=== PATIENT | female | born 1945 | race Caucasian/White ===

== ENCOUNTER 2020-07-20 10:30 | Emergency (ER) | payer MEDICARE, SELFPAY ==
[2020-07-20 10:37] VITALS: BP 117/88; PULSE 59; RESP 12; TEMP 36.1; O2SAT 98
--- NOTE | 2020-07-20 10:57 | ED.SKABFB ---
HPI - Skin/Abscess/Foreign Bdy General Chief complaint: Skin/Abscess/Foreign Body Stated complaint: bite/skin Time Seen by Provider: 07/20/20 10:47 Source: patient and RN notes reviewed Mode of arrival: ambulatory Limitations: no limitations History of Present Illness HPI narrative: Patient presents today complaining of an area to the right lower jaw that is, eating away at my face. States she sustained a wasp sting to this area 1 month ago, but had not been causing problems after a few days. States a few nurse friends noted some swelling to this area and told patient she should apply Prid Salve. She did, but states the area became worse. Denies pain or itching. She is now applying FOZIA for the last few days. MD complaint: insect bite/sting Related Data Home Medications Medication Instructions Recorded Confirmed simvastatin 20 mg PO DAILY 07/20/20 Allergies Allergy/AdvReac Type Severity Reaction Status Date / Time No Known Allergies Allergy Unknown Verified 07/20/20 10:38 Review of Systems Review of Systems: Narrative: CONSTITUTIONAL: Denies body aches, fever, chills, or sweats. EYES: Denies visual changes, redness, or discharge. ENT: Denies rhinorrhea, congestion, sore throat, or otalgia. CARDIOVASCULAR: Denies chest pain, palpitations, or edema. RESPIRATORY: Denies cough or dyspnea. GASTROINTESTINAL: Denies abdominal pain, nausea, vomiting, or diarrhea. GENITOURINARY: Denies dysuria or hematuria. SKIN: + Wound to right lower jaw MUSCULOSKELETAL: Denies back pain, joint pain, or myalgia. NEUROLOGIC: Denies headache, numbness, tingling, or weakness. PSYCH: Denies depression or anxiety. PMFSH Social History Social History (Reviewed 12/06/19 @ 10:22 by Racquel Del Rosario [facility]) Smoking status: Never smoker Second hand tobacco smoke exposure: No Alcohol intake: never Comments At time of signature, I have reviewed and agree with nursing past medical, surgical, social and family history unless otherwise noted. Please see nursing chart for further information. There is no relevant family history pertinent to the presenting complaint Exam Narrative: Exam Narrative: GENERAL: Well-appearing, well-nourished, and in no acute distress. HEAD: Normocephalic, atraumatic. EYES: EOMI. No redness or drainage. Conjunctivae normal. ENT: Mucous membranes pink and moist. NECK: Normal AROM. Supple. No lymphadenopathy. CHEST: No respiratory distress. EXTREMITIES: Normal range of motion. No edema. SKIN: Warm, dry, no rash. Capillary refill normal. Normal skin turgor. 1cm very superficial round scab to the right lower jaw line. There is no erythema, induration, fluctuance, drainage, pain with palpation, swelling, open wound, or any other sign of infection. No lymphadenopathy. Non tender. NEURO: No focal deficits. Alert and oriented x3. Gait steady. PSYCH: Normal affect. No signs of depression or anxiety. Course Vital Signs Vital signs: Vital Signs Temperature 96.9 F L 07/20/20 10:37 Pulse Rate 59 L 07/20/20 10:37 Respiratory Rate 12 07/20/20 10:37 Blood Pressure 117/88 07/20/20 10:37 Pulse Oximetry 98 07/20/20 10:37 Temperature 96.9 F L 07/20/20 10:37 Pulse Rate 59 L 07/20/20 10:37 Respiratory Rate 12 07/20/20 10:37 Blood Pressure 117/88 07/20/20 10:37 Pulse Oximetry 98 07/20/20 10:37 Reviewed. Pt has been instructed to follow up with her PCP regarding her elevated blood pressure today. MDM - Skin/Abscess/Foreign Bdy Differential Diagnosis Differential diagnosis: Likely abscess of skin or subcutaneous tissue, cellulitis, eczema, insect bites, impetigo and contact dermatitis Critical Care Time Critical Care Time Critical Care Time: No Discharge Plan Discharge Clinical Impression: Scab Patient Disposition: Home, Self-Care Condition: Stable Additional Instructions: Please use the mupirocin ointment as prescribed. Follow-up with your PCP at the end of
== END 2020-07-20 11:03 | disposition home or self-care (01) ==
PROVIDERS: Emergency Provider Nurse Practitioner; PCP Family Medicine
DX: R23.4 Changes in skin texture (principal)
CPT/HCPCS: 99213; G0463

== ENCOUNTER → 2020-10-15 11:56 | Outpatient (CLI) | payer MEDICARE, SELFPAY ==
--- NOTE | ~2020-10-15 | MM_ITS ---
EXAMINATION: MM screening zee BI w judi HISTORY: Screening TECHNIQUE: Craniocaudal and mediolateral oblique 3-D tomosynthesis images were obtained and synthetic 2-D images were generated. CAD analysis was submitted and interpreted. COMPARISON: Comparison to multiple prior studies sequentially, with oldest reviewed study dated 12/03. BREAST PARENCHYMAL COMPOSITION: There are scattered areas of fibroglandular density. FINDINGS: There is no evidence of suspicious mass, calcification, or architectural distortion to sugg est malignancy in either breast. There has been no suspicious interval change. IMPRESSION: 1. No mammographic evidence of malignancy. 2. Recommend routine screening mammography in one year. BI-RADS Category 1: Negative Reviewed, dictated and finalized at location D. E TABLE OPERATOR
== END ==
PROVIDERS: PCP Family Medicine; Visit Provider Family Medicine
DX: Z12.31 Encounter for screening mammogram for malignant neoplasm of breast (principal)
CPT/HCPCS: 77063; 77067

== ENCOUNTER 2022-09-28 14:51 | Outpatient (CLI) | payer MEDICARE, SELFPAY ==
--- NOTE | ~2022-09-28 | DEXA_ITS ---
Bone Density Report Name: EVELYNE CHAVEZ Age: 77 Sex: Female Ethnicity: White Date of : 1945 Indication: postmenopausal; screening for osteoporosis; Referring Provider: UNKNOWN, UNKNOWN Study: Bone densitometry was performed. Exam Date: September 28, 2022 Accession number: [id number] Bone Density: Region BMD T-score Z-score Classification AP Spine(L1-L4) 1.043 0.0 2.6 Normal Femoral Neck (Left) 0.789 -0.5 1.7 Normal Total Hip (Left) 0.918 -0.2 1.8 Normal Femoral Neck (Right) 0.810 -0.4 1.9 Normal Total Hip (Right) 0.903 -0.3 1.7 Normal Total Hip Mean 0.910 -0.3 1.8 Normal World Health Organization criteria for BMD impression classify patients as: Normal (T-score at or above -1.0), Osteopenia (T-score between -1.0 and -2.5), or Osteoporosis (T-score at or below -2.5). 10-year Fracture Risk: FRAX not reported because: All T-scores for Spine Total, Hip Total, Femoral Neck at or above -1.0 Clinical Information Provided by Patient: Patient maximum height was 64 Menopause Age: 48 Drinks caffeinated beverages Onset of menses at age 10 Number of children 2 Impression: The patient has normal bone mass. Discussion: BONE DENSITY IS ABOVE THE MINIMUM DESIRABLE LEVEL AT ALL SKELETAL SITES TESTED. This patient?s bone mineral density is above the minimum desirable level (T-score -1.0 or better) at all sites measured. The patient should follow a healthful lifestyle (good nutrition with adequate calcium and vitamin D, and appropriate weight-bearing exercise). Follow-Up: Consider repeating this study in 5 years or sooner if there is some new clinical indication. Reported by: PEPE on 09/28/2022 3:23:00 PM. Reviewed, dictated and finalized at location AJennifer [facility]
== END 2022-09-28 14:52 | disposition home or self-care (01) ==
PROVIDERS: PCP Family Medicine
DX: Z78.0 Asymptomatic menopausal state (principal)
CPT/HCPCS: 77080

== ENCOUNTER 2024-07-26 06:29 | Day surgery (SDC) | payer MEDICARE, SELFPAY ==
[2024-06-14 06:06] VITALS: BMI 30.7
[2024-07-10 14:02] VITALS: BMI 28.8
--- NOTE | 2024-07-25 13:12 | P.PNAN_ITS ---
Anes - Initial Pre Proc Eval Procedure: Operation Date: 07/26/24 08:30 Proposed Procedures p Diagnostic Colonoscopy - Sebastian Tejada MD Date/Time: 07/25/24 13:12 Surgeon: Sebastian Tejada MD Pre Op Diagnosis: HX of Colon Polyps Patient Data Age: 79 Gender: F Height: 1.63 m Weight: 76 kg Allergies Allergy/AdvReac Type Severity Reaction Status Date / Time crab Allergy Unknown Swelling Verified 07/26/24 07:23 of Lip/Tongue/Throat Home Medications Medication Instructions Recorded Confirmed Type simvastatin 20 mg tablet 20 mg PO DAILY #90 tabs 11/14/20 07/10/24 Rx losartan 50 mg tablet 50 mg PO DAILY 07/10/24 07/10/24 History Patient hx anesthesia problems: none Family hx anesthesia problems: none Results Review: All pre-operative results and documents have been reviewed as part of the pre- operative evaluation. [facility] Past Medical History Medical History (Updated 07/25/24 @ 13:13 by Elijah Saunders DO) Hypertension Other hyperlipidemia Vitamin D deficiency Family History Family History Other Cerebrovascular accident Family history of coronary artery disease Social History Social History Smoking status: Never smoker Second hand tobacco smoke exposure: No Alcohol intake: current Substance use: never Substance use type: does not use Living arrangements: alone Spiritual care concerns: No Anes - Eval Final PreProcedure Day of Procedure 07/25/24 13:12 Patient weight: overweight Heart: regular rate and rhythm Lungs: clear to auscultation Airway: Mallampati scale class II Neurological: alert and oriented Last oral intake: >/= 8 hours ASA classification: II Emergent: no Anesthetic plan: proceed Anesthesia type and monitoring: general GIVS and standard monitoring Results Review: All pre-operative results and documents have been reviewed as part of the pre- operative evaluation. Informed Consent: The patient's anesthetic plan and its attendant risks and benefits were discussed with the patient/family/POA. Questions were solicited and answers provided to the satisfaction of the patient/family/POA.
[2024-07-26 07:28] VITALS: BP 146/58; PULSE 60; RESP 16; TEMP 36.1; O2SAT 99
[2024-07-26] MEDS: LACTATED RINGERS 1,000 ML 150 ML IV CONT (07:48)
--- NOTE | 2024-07-26 08:17 | PM.HPGS ---
History of Present Illness History of Present Illness Consent: Risks, benefits, and alternatives have been discussed and questions answered. Patient agrees to proceed with procedure. Chief complaint: HX of Colon Polyps Narrative: Cuca Akins is a 79 year old female referred for colonoscopy. Patient's current weight appetite and bowel movements are normal. Patient denies abdominal pain. She has had no bleeding. In 2019 she was fine to have a benign tubulovillous adenoma. Patient presents today for follow-up surveillance colonoscopy. She denies abdominal pain. Her bowel habits are normal with no bleeding. Family History is noncontributory. Review of Systems Review of Systems: All systems reviewed & are unremarkable except as noted in HPI and below PMFSH Past Medical History Medical History (Updated 07/26/24 @ 08:19 by Sebastian Tejada MD) Hypertension Other hyperlipidemia Vitamin D deficiency Family History Family History Other Cerebrovascular accident Family history of coronary artery disease Social History Social History Smoking status: Never smoker Second hand tobacco smoke exposure: No Alcohol intake: current Substance use: never Substance use type: does not use Living arrangements: alone Spiritual care concerns: No Meds Home Medications and Allergies Home Medications Medication Instructions Recorded Confirmed Type simvastatin 20 mg tablet 20 mg PO DAILY #90 tabs 11/14/20 07/10/24 Rx losartan 50 mg tablet 50 mg PO DAILY 07/10/24 07/10/24 History Allergies Allergy/AdvReac Type Severity Reaction Status Date / Time crab Allergy Unknown Swelling Verified 07/26/24 07:23 of Lip/Tongue/Throat Vital Signs Vital Signs - 24 hr 07/26/24 07:28 Temperature 97.0 F L Pulse Rate 60 Respiratory Rate 16 Blood Pressure 146/58 H Pulse Oximetry 99 Oxygen Delivery Room Air Exam Narrative: Physical exam reveals patient to be alert. Vital signs stable. HEENT exam is unremarkable. Patient is anicteric. Lungs are clear to auscultation and percussion is without murmur sounds. Abdomen bowel sounds are present soft nontender with no organomegaly. Digital external rectal exam normal. Assessment and Plan Assessment and plan (1) History of colon polyps: Code(s): Z86.010 - Personal history of colonic polyps Status: Acute Assessment and Plan: Patient has a history of a tubulovillous adenoma removed from the colon 2018. Follow-up colonoscopy will be performed today. Further recommendations may be given after endoscopy.
[2024-07-26 08:49] VITALS: BP 107/47; PULSE 98; RESP 16; O2SAT 98
[2024-07-26 08:59] VITALS: BP 105/74; PULSE 56; RESP 16; O2SAT 98
[2024-07-26 09:14] VITALS: BP 101/85; PULSE 56; RESP 15; O2SAT 98
--- NOTE | 2024-07-26 10:49 | WPDANESPN ---
Anes - Prog Note Post-Op Date/Time: 07/26/24 10:49 Cardiovascular status: normal Respiratory status: normal Airway patency: baseline Mental status: baseline Post-Op hydration status: normal Vital Signs: Last Vital Signs Temp 36.1 C L 07/26/24 07:28 Pulse 56 L 07/26/24 09:14 Resp 15 07/26/24 09:14 BP 101/85 07/26/24 09:14 Pulse Ox 98 07/26/24 09:14 O2 Del Method Room Air 07/26/24 09:14 Pain Score (VAS): 0 I/O: Intake & Output 07/25/24 07/26/24 07/26/24 23:59 07:59 15:59 Intake Total 500 Balance 500 Post-procedural complaints: none Patient Feedback: Patient satisfied with anesthetic care. Other Findings: Patient vital signs back to baseline. Patient denies nausea and vomiting. Patient's pain under control. Patient OK for discharge.
== END 2024-07-26 09:32 | disposition home or self-care (01) ==
PROVIDERS: Visit Provider Internal Medicine Gastroenterology
PROC: 0DJD8ZZ Inspection of Lower Intestinal Tract, Via Natural or Artificial Opening Endoscopic (ICD-10-PCS; CPT 45378; principal; 2024-07-26 08:30)
DX: Z86.010 Personal history of colon polyps (principal); K64.8 Other hemorrhoids
CPT/HCPCS: 45378